=== PATIENT | female | born 1970 | race Caucasian/White ===

== ENCOUNTER 2017-06-16 22:45 | Emergency (ER) | payer MEDICAID ==
[~2017-06-16] VITALS: Ht 149.9 cm; Wt 68.0 kg
[2017-06-17] MEDS ORDERED: IBUPROFEN 400MG TABLET PO ONE (00:45)
[2017-06-17 00:52] VITALS: BP 142/89
== END 2017-06-17 01:32 | disposition home or self-care (01) ==
LOC: ER 22:45
DX: S70.02XA Contusion of left hip, initial encounter (principal); E78.00 Pure hypercholesterolemia, unspecified; I10 Essential (primary) hypertension; V49.60XA Unspecified car occupant injured in collision with unspecified motor vehicles in traffic accident, initial encounter; Y93.89 Activity, other specified; Y92.488 Other paved roadways as the place of occurrence of the external cause
CPT/HCPCS: 99282